=== PATIENT | male | born 1990 | race African-American/Black ===

== ENCOUNTER 2016-12-24 01:41 | Inpatient (IN) | payer OTHER ==
[2016-12-24] VITALS (22 sets, daily range): BP systolic 90–138; BP diastolic 44–84
[~2016-12-24] VITALS: Ht 177.8 cm; Wt 77.3 kg
[2016-12-24] MEDS ORDERED: seroquel (02:02)
[2016-12-24 02:06] LABS: EOSINOPHIL COUNT 0.1 K/uL (0-0.3); HEMATOCRIT 38.8 % (38.0-50.0); IMMATURE GRANULOCYTE (%) 0.3 % (0.0-0.7); INSTRUMENT ABS NEUTROPHIL CT 4.5 K/uL; LYMPHOCYTE COUNT 1.7 K/uL (1.0-2.8); MCH 29.3 PG (29.0-34.0); MCHC 33.5 G/DL (30.0-36.0); MCV 87.6 FL (86-99); MEAN PLAT.VOLUME 9.7 uM^3 (9.0-12.4); MONOCYTE (%) 8.2 % (3-12); MONOCYTE COUNT 0.6 K/uL (0-0.8); NEUTROPHIL (%) 65.4 % (45-76); NEUTROPHIL COUNT 4.5 K/uL (1.8-6.4); PLATELET COUNT 194 K/uL (156-360); RBC DIS.WIDTH-CV 12.1 % (11.8-14.6); RBC DIS.WIDTH-SD 39.3 % (39-53); RED BLOOD COUNT 4.43 M/uL (4.00-5.50); WHITE BLOOD COUNT 6.8 K/uL (4.1-10.2)
[2016-12-24 02:23] LABS: AMYLASE 54 IU/L (1-118); CHLORIDE 102 mEq/L (99-109); POTASSIUM 4.2 mEq/L (3.7-5.4); SODIUM 135 mEq/L (136-147)
[2016-12-24 02:25] LABS: GLUCOSE 135 mg/dL (70-99)
[2016-12-24 02:26] LABS: ANION GAP 10 MEQ/L (2-14)
[2016-12-24 02:28] LABS: SERUM ETHYL ALCOHOL < 10 mg/dL
[2016-12-24 02:29] LABS: GFR ESTIMATE (CALCULATED) > 59 mL/min/; UREA NITROGEN (BUN) 15 mg/dL (9-23)
[2016-12-24 02:32] LABS: LIPASE 20 U/L (1.0-51.0)
[2016-12-24 02:45] LABS: ADD MIUA? YES; BILIRUBIN NEGATIVE; BLOOD SMALL; COLOR YELLOW ((YELLOW)); GLUCOSE (STRIP) NEGATIVE; KETONES NEGATIVE; LEUKOCYTES NEGATIVE; NITRITE NEGATIVE; PROTEIN (STRIP) NEGATIVE; UROBILINOGEN 0.2 MG/DL (0.2-1.0)
[2016-12-24 02:55] LABS: BACTERIA RARE /HPF; EPITHELIAL CELLS NONE SEEN /HPF; MUCUS TRACE /LPF; RED BLOOD CELLS 0-5 /HPF (0-5); UCUL ADDED? NO; WHITE BLOOD CELLS 0-5 /HPF (0-5)
[2016-12-24 02:57] LABS: ADD MEDTOX COMMENT Y; AMPHETAMINE NEGATIVE (500 ng/mL); BARBITURATES NEGATIVE (200 ng/mL); BENZODIAZEPINES NEGATIVE (150 ng/mL); COCAINE NEGATIVE (150 ng/mL); INTERNAL CONTROLS VALID? YES; METHADONE NEGATIVE (200 ng/mL); METHAMPHETAMINE NEGATIVE (500 ng/mL); OPIATES (MORPHINE) NEGATIVE (100 ng/mL); OXYCODONE NEGATIVE (100 ng/mL); PHENCYCLIDINE NEGATIVE (25 ng/mL); PROPOXYPHENE NEGATIVE (300 ng/mL); THC CANNABINOIDS PRESUMPTIVE POSITIVE (50 ng/mL); TRICYCLIC ANTIDEPRESSANTS NEGATIVE (300 ng/mL)
[2016-12-24 03:15] LABS: SPECIFIC GRAVITY 1.061 (1.000-1.030)
[2016-12-24 03:59] LABS: COMMENTS - BLOOD GASES A+C+; DEVICE 980; FI02 100 %; MECHANICAL RATE 16 resp/min; MODE AC; PCO2 43 mm Hg (35-45); PEEP 5 CM/H20; PO2 223 mm Hg (80-100); SITE RR; TIDAL VOLUME 500 ML; TOTAL RESP RATE 16 resp/min; pH 7.38 (7.35-7.45)
[2016-12-24 04:00] LABS: BASE EXCESS 0.1 mEq/L (-3 to +3); BICARBONATE 25.4 mEq/L (22-26); CARBOXY HGB 1.8 % (0-5); HEMOGLOBIN 13.4 (12.5-16.6); METHEMOGLOBIN 2.2 % (0-1.5)
[2016-12-24 05:02] LABS: METH RESISTANT S AUREUS PCR NEGATIVE (NEGATIVE)
[2016-12-24 05:08] LABS: PROBE CHECK PASS; SPECIMEN PROCESSING CONTROL PASS
[2016-12-24 06:55] LABS: ANION GAP 14 MEQ/L (2-14); CHLORIDE 105 MEQ/L (99-109); GFR ESTIMATE (CALCULATED) > 59 mL/min/; POTASSIUM 3.6 MEQ/L (3.7-5.4); SAMPLE HEMOLYSIS CHECK 0; SAMPLE ICTERIC CHECK 0; SAMPLE LIPEMIA CHECK 0; UREA NITROGEN (BUN) 13 mg/dL (9-23)
[2016-12-24 06:59] LABS: GLUCOSE 88 mg/dL (70-99); SODIUM 142 MEQ/L (136-147)
[2016-12-24 07:35] LABS: HEMATOCRIT 38.9 % (38.0-50.0); MCH 29.5 PG (29.0-34.0); MCHC 34.2 G/DL (30.0-36.0); MCV 86.3 FL (86-99); MEAN PLAT.VOLUME 9.6 uM^3 (9.0-12.4); PLATELET COUNT 199 K/uL (156-360); RBC DIS.WIDTH-CV 12.2 % (11.8-14.6); RBC DIS.WIDTH-SD 38.8 % (39-53); RED BLOOD COUNT 4.51 M/uL (4.00-5.50); WHITE BLOOD COUNT 10.2 K/uL (4.1-10.2)
[2016-12-24 09:44] LABS: CREATINE KINASE 586 IU/L (1-294); TRIGLYCERIDES 81 MG/DL (Normal: <150)
[2016-12-25] VITALS (22 sets, daily range): BP systolic 108–165; BP diastolic 59–88
[2016-12-26 03:28] VITALS: BP 137/73
[2016-12-26 07:20] LABS: EOSINOPHIL (%) 0.8 % (0-5); EOSINOPHIL COUNT 0.1 K/uL (0-0.3); IMMATURE GRANULOCYTE (%) 0.3 % (0.0-0.7); INSTRUMENT ABS NEUTROPHIL CT 7.7 K/uL; LYMPHOCYTE COUNT 1.1 K/uL (1.0-2.8); MCH 30.3 PG (29.0-34.0); MCHC 34.6 G/DL (30.0-36.0); MCV 87.7 FL (86-99); MEAN PLAT.VOLUME 10.3 uM^3 (9.0-12.4); MONOCYTE COUNT 1.1 K/uL (0-0.8); NEUTROPHIL (%) 76.7 % (45-76); NEUTROPHIL COUNT 7.7 K/uL (1.8-6.4); PLATELET COUNT 188 K/uL (156-360); RBC DIS.WIDTH-SD 39.2 % (39-53); RED BLOOD COUNT 4.22 M/uL (4.00-5.50); WHITE BLOOD COUNT 10.1 K/uL (4.1-10.2)
[2016-12-26 08:02] LABS: ANION GAP 7 MEQ/L (2-14); CHLORIDE 104 MEQ/L (99-109); GFR ESTIMATE (CALCULATED) > 59 mL/min/; POTASSIUM 3.9 MEQ/L (3.7-5.4); SAMPLE HEMOLYSIS CHECK 0; SAMPLE ICTERIC CHECK 0; SAMPLE LIPEMIA CHECK 0; SODIUM 140 MEQ/L (136-147); UREA NITROGEN (BUN) 3 mg/dL (9-23)
[2016-12-26 08:08] LABS: CREATINE KINASE 1708 IU/L (1-294); GLUCOSE 117 mg/dL (70-99)
[2016-12-26 08:09] VITALS: BP 133/69
[2016-12-26 12:05] VITALS: BP 129/59
[2016-12-26 16:24] VITALS: BP 176/70
[2016-12-26 23:46] VITALS: BP 126/74
[2016-12-27 07:26] VITALS: BP 128/61
[2016-12-27 08:22] LABS: HEMATOCRIT 38.5 % (38.0-50.0); MCH 29.3 PG (29.0-34.0); MCHC 33.5 G/DL (30.0-36.0); MCV 87.5 FL (86-99); MEAN PLAT.VOLUME 9.6 uM^3 (9.0-12.4); PLATELET COUNT 231 K/uL (156-360); RBC DIS.WIDTH-CV 11.8 % (11.8-14.6); RBC DIS.WIDTH-SD 38.4 % (39-53); WHITE BLOOD COUNT 8.4 K/uL (4.1-10.2)
[2016-12-27 08:30] VITALS: BP 112/68
[2016-12-27 08:47] LABS: ANION GAP 8 MEQ/L (2-14); CHLORIDE 103 MEQ/L (99-109); CREATINE KINASE 886 IU/L (1-294); GFR ESTIMATE (CALCULATED) > 59 mL/min/; GLUCOSE 97 mg/dL (70-99); POTASSIUM 4.2 MEQ/L (3.7-5.4); SAMPLE HEMOLYSIS CHECK 0; SAMPLE ICTERIC CHECK 0; SAMPLE LIPEMIA CHECK 0; SODIUM 142 MEQ/L (136-147); UREA NITROGEN (BUN) 4 mg/dL (9-23)
[2016-12-27 15:25] VITALS: BP 133/83
[2016-12-27 23:31] VITALS: BP 136/68
[2016-12-28] VITALS (10 sets, daily range): BP systolic 115–158; BP diastolic 61–93
[2016-12-29 11:45] VITALS: BP 124/66
[2016-12-29 15:00] VITALS: BP 134/81
[2016-12-29] MEDS ORDERED: DEPAKOTE250 MG PO (15:06)
[2016-12-29] MEDS ORDERED: SEROQUEL50 MG PO (15:06)
== END 2016-12-29 16:49 | disposition home or self-care (01) | DRG 208 ==
LOC: TRA 01:41 → ENRESERV 02:27 → 4WEST 02:35 → EDOF 02:35 → 3EAST 02:35 → ENRESERV 03:01 → 4WEST 03:28 → ENRESERV 12-25 20:03 → 3EAST 12-25 22:42 → 4WEST 12-28 13:17
PROVIDERS: Emergency Medicine; Internal Medicine Critical Care Medicine; Physician Assistant Surgical; Surgery
PROC: 0BH17EZ Insertion of Endotracheal Airway into Trachea, Via Natural or Artificial Opening (ICD-10-PCS; principal; 2016-12-24)
PROC: 0W9930Z Drainage of Right Pleural Cavity with Drainage Device, Percutaneous Approach (ICD-10-PCS; principal; 2016-12-24)
PROC: 0HQ6XZZ Repair Back Skin, External Approach (ICD-10-PCS; principal; 2016-12-24)
PROC: 5A1945Z Respiratory Ventilation, 24-96 Consecutive Hours (ICD-10-PCS; principal; 2016-12-24)
DX: S27.2XXA Traumatic hemopneumothorax, initial encounter (principal); S21.231A Puncture wound without foreign body of right back wall of thorax without penetration into thoracic cavity, initial encounter; X99.1XXA Assault by knife, initial encounter; J96.01 Acute respiratory failure with hypoxia; M62.82 Rhabdomyolysis; N17.9 Acute kidney failure, unspecified; I95.9 Hypotension, unspecified; M25.552 Pain in left hip; F31.9 Bipolar disorder, unspecified; F60.2 Antisocial personality disorder; R45.86 Emotional lability; F12.10 Cannabis abuse, uncomplicated; R45.4 Irritability and anger
CPT/HCPCS: 36600; 71010; 71020; 71260; 74177; 80048; 80048 91; 81003; 82150; 82550; 82550 91; 82803; 83690; 84478; 84999; 85025; 85027; 86850; 86900; 86901; 87070; 87205; 87641; 94002; 94003; 94799; 99281; 99285; C9113; G0480; J0690; J1630; J1650; J2060; J2270; J2704; J3010; J7050; J7120